=== PATIENT | female | born 1940 | race Caucasian/White ===

== ENCOUNTER → 2016-06-17 | Outpatient (CLI) | payer MEDICARE ==
[~2016-06-17] MED LIST: ASPI-496 PO; LORA-439 PO; LOSA1TAB16 PO; VITAMIN D PO; [UNRECOGNIZED DRUG - OTHER] PO
== END | disposition home or self-care (01) ==
LOC: CFH 09:19
PROVIDERS: ATTEND Internal Medicine Cardiovascular Disease
DX: C22.9 Malignant neoplasm of liver, not specified as primary or secondary (principal); I08.3 Combined rheumatic disorders of mitral, aortic and tricuspid valves; I10 Essential (primary) hypertension
CPT/HCPCS: 93306